=== PATIENT | male | born 1965 | race Caucasian/White ===

== ENCOUNTER → 2021-07-31 00:16 | Outpatient (CLI) | payer OTHER, SELFPAY ==
[2021-07-31 13:24] LABS: SARS-CoV-2 RNA PCR Negative
== END ==
PROVIDERS: PCP Internal Medicine; Visit Provider Surgery
DX: Z01.812 Encounter for preprocedural laboratory examination (principal); Z20.822 Contact with and (suspected) exposure to COVID-19
CPT/HCPCS: C9803; U0003; U0005

== ENCOUNTER 2021-08-04 00:26 | Day surgery (SDC) | payer OTHER, SELFPAY ==
[2021-07-28 10:12] VITALS: BMI 26.4
--- NOTE | 2021-07-28 10:24 | PC.NURSE ---
Report to the Outpatient Waiting Room, entrance under the green pavilion located off [facility], at time 0630 on date 08/04/21. OR Time: 0830. - You will be asked a series of questions to screen for COVID 19 for your protection. - A mask is required within the hospital. - No visitors are allowed at this time. Preoperative COVID Testing Requirements: COVID TEST 2/ AT 0930 No COVID Test needed if: (proof is required; if not received patient will have Rapid Test prior to entry) - Patient has received COVID Vaccine at least 14 days prior to procedure date or - Patient has positive COVID test result within last 90 days of surgery date. COVID Test needed if above criteria is not met If not COVID vaccinated a COVID test must be conducted within 72 hours of surgery and patient is asked to isolate self from time of testing until procedure. You will go to the [facility] for your COVID testing. The [facility] is located at the corner of [address] [facility]. You will only be called if COVID results are positive and your surgeon may reschedule your elective surgery date. Patients may have clear liquids (water, carbonated beverages, clear teas, apple juice) until 3 hours prior to surgery with a maximum of 20 ounces. - No food from midnight until time of surgery Take the following medications with a SIP of water the morning of surgery: NONE Medications to discontinue per physician: N/A Date to take last dose: N/A Please no make-up, nail sao tomean, hairspray, perfume, deodorant, or body powder the day of surgery. No jewelry (including any body piercings) or valuables the day of surgery, leave them at home. Please take a shower or bath the night before, or the morning of, surgery with an antibacterial soap. Wear comfortable, loose fitting clothing. HIBICLENS SHOWER - Jewelry must be removed prior to entering the operating room. Rings and piercings that are not removed may be cut off. - The hospital will not accept responsibility for valuables. - Please leave all valuables, including medications, at home the day of surgery. If you are going home after surgery, a licensed car pick up driver must drive you home. - NO public transportation without another adult. - We recommend that an adult stay with you for 24 hours following discharge. - We also recommend that you do not drive, make important decision, drink alcoholic beverages, or take any drugs that were not prescribed by your health care provider for at least 24 hours after your discharge time. Follow any additional instructions given to you from your surgeon. Telephone instructions given to CAROL PATEL and asked if any additional questions and then verbalized understanding. Patient advised to call surgeon office or pre surgery nurse liaison [phone] if any additional questions.
[2021-08-04 06:00] VITALS: BP 143/86; PULSE 68; RESP 16; TEMP 36.1; O2SAT 99
[2021-08-04] MEDS: ACETAMINOPHEN 500 MG TABLET 1000 MG PO (06:08)
[2021-08-04] MEDS: LACTATED RINGERS 1,000 ML 30 ML IV CONT ×2 (06:10→10:09)
[2021-08-04] MEDS: KETOROLAC 15 MG/ML VIAL (*BKC) IV PUSH (06:15)
--- NOTE | 2021-08-04 07:02 | PM.SD2 ---
Same Day Admit/Disch: HPI History of Present Illness Chief complaint: right inguinal hernia Narrative: Mir Chan is a 56 year old maleWith a right groin bulge for at least 2 years. This bulge has increased in size and is occasionally painful. He had bilateral inguinal hernia repairs when he was 5 years old. He has a history of a cardiac ablation for rapid heartbeat in 2019. He is a smoker and has had previous laparoscopic cholecystectomy. He is taken to surgery now for repair of right inguinal hernia. [facility] Past Medical History Medical History FH: cholecystectomy (~2017) Overweight (BMI 25.0-29.9) Surgical History Surgical History History of cardiac radiofrequency ablation (~2019) Hx of cholecystectomy Social History Social History Social History: Caffeine- tea/soda daily Smoking packs per day: 1 Smoking cigarettes per day: 20.0 Years smoked: 40 Smoking pack-years: 40.00 Smoking status: Current every day smoker Tobacco type: cigarettes Alcohol intake: current Alcohol use details: LOTS A COUPLE TIMES A WEEK - BEER AND FIREBALL Substance use: never Substance use type: does not use Living arrangements: with family Spiritual care concerns: No Same Day Admit/Disch: Med Pre-admit Medications Home Medications Medication Instructions Recorded Confirmed Type hydrocodone-acetaminophen 1 - 2 tablet PO Q6H PRN #10 tablet 08/04/21 Rx ketorolac 10 mg PO Q6H 4 Days #16 tablet 08/04/21 Rx Exam Const: General: comfortable, no acute distress, alert and awake HENMT: Head: normocephalic and atraumatic Mouth: Yes Normal oral and palatal mucosa present Eyes: Conjunctivae: conjunctivae normal Pupils: Equal, round and reactive pupils present EOM: EOMs intact bilaterally Neck: Neck: normal visual inspection, no lymphadenopathy and nontender Resp: Effort & Inspection: normal respiratory effort Auscultation: clear to auscultation bilaterally Cardio: Rate: regular rate Rhythm: regular rhythm Heart sounds: no gallops, no murmurs and no rubs GI: Inspection: non-distended and visible herniation ( Tiny nontender umbilical hernia) GI Palp: Yes Soft to palpation, No Tenderness to palpation present (GI), No Hepatomegaly present and No Splenomegaly present : Male General Exam: Yes hernia ( reducible right inguinal hernia, no left inguinal hernia) Penis: Yes normal penis Scrotum: scrotum normal Testes: Testes normal Skin: Lesions: no lesions Rashes: no rashes Neuro: General: no focal motor deficits and CN's II-XI intact bilaterally Cranial nerves: Yes Equal, round and reactive pupils present, Yes Bilaterally intact EOM present, Yes facial symmetry and Yes Midline tongue present Speech: normal speech Motor exam (neuro): 5/5 motor strength present throughout and Motor abnormalities not present Extrem: General: no clubbing, cyanosis or edema and edema Psych: Affect: normal affect Thought process: Normal thought process present Insight: Good insight present (Psych) DS: Summary Time Spent with Patient Time attestation: Total time spent providing and/or coordinating discharge services: DS: Admitting Diagnosis Discharge Date 08/04/2021 Admitting Diagnosis right inguinal hernia -plan to repair as an outpatient most likely with mesh. The procedure the risks the benefits have been discussed. All questions were answered. He understands and agrees to go ahead. Smoker history of coronary ablation for rapid tachyarrhythmia DS: Discharge Diagnosis Discharge Diagnosis (1) Reducible right inguinal hernia: Code(s): K40.90 - Unilateral inguinal hernia, without obstruction or gangrene, not specified as recurrent Status: Chronic (2) Tobacco abuse: Code(s): Z72.0 - Tobacco use Status: Chronic
--- NOTE | 2021-08-04 07:06 | WPDHPUPDATE1 ---
History and Physical Update Update Date/Time: 08/04/21 07:06 History and Physical has been reviewed, including an updated exam of the patient. There are NO changes in the patient's condition. Risks, benefits, and alternatives have been discussed and questions answered. Patient agrees to proceed with procedure.
--- NOTE | 2021-08-04 07:14 | P.PNAN_ITS ---
Anes - Initial Pre Proc Eval Procedure: Operation Date: 08/04/21 08:30 Proposed Procedures p Open Right Inguinal Hernia Repair - Imtiaz Mesa MD Date/Time: 08/04/21 07:14 Surgeon: Imtiaz Mesa MD Pre Op Diagnosis: right inguinal hernia Patient Data Age: 56 Gender: M Height: 1.85 m Weight: 83 kg Last Vital Signs Temp 36.1 C L 08/04/21 06:00 Pulse 68 08/04/21 06:00 Resp 16 08/04/21 06:00 BP 143/86 H 08/04/21 06:00 Pulse Ox 99 08/04/21 06:00 Allergies Allergy/AdvReac Type Severity Reaction Status Date / Time No Known Allergies Allergy Verified 08/04/21 06:36 Home Medications Medication Instructions Recorded Confirmed Type No Home Medications 05/31/21 08/04/21 History Patient hx anesthesia problems: none Family hx anesthesia problems: none Results Review: All pre-operative results and documents have been reviewed as part of the pre-operative evaluation. [facility] Past Medical History Medical History FH: cholecystectomy (~2018) Overweight (BMI 25.0-29.9) Surgical History Surgical History History of cardiac radiofrequency ablation (~2019) Hx of cholecystectomy Social History Social History Social History: Caffeine- tea/soda daily Smoking packs per day: 1 Smoking cigarettes per day: 20.0 Years smoked: 40 Smoking pack-years: 40.00 Smoking status: Current every day smoker Tobacco type: cigarettes Alcohol intake: current Alcohol use details: LOTS A COUPLE TIMES A WEEK - BEER AND FIREBALL Substance use: never Substance use type: does not use Living arrangements: with family Spiritual care concerns: No Anes - Eval Final PreProcedure Day of Procedure 08/04/21 07:14 Patient weight: normal Heart: regular rate and rhythm Lungs: clear to auscultation and normal air movement Airway: Mallampati scale class II Neurological: alert and oriented Last oral intake: >/= 8 hours ASA classification: III Emergent: no Anesthetic plan: proceed Anesthesia type and monitoring: general GIVS and standard monitoring Results Review: All pre-operative results and documents have been reviewed as part of the pre-operative evaluation. Informed Consent: The patient's anesthetic plan and its attendant risks and benefits were discussed with the patient/family/POA. Questions were solicited and answers provided to the satisfaction of the patient/family/POA.
[2021-08-04] MEDS: ceFAZolin 2 GM/D5W 50 ML 2 GM/50 ML BAG IVPB (08:41)
[2021-08-04] MEDS: BUPIVACAINE/EPINEPHRINE 0.5% 30 ML VIAL INFILTRATE ×2 (09:06→09:54)
[2021-08-04 10:09] VITALS: BP 125/83; PULSE 81; RESP 16; TEMP 36.2; O2SAT 94
--- NOTE | 2021-08-04 10:14 | W.PM.PROC2 ---
Procedure Note - Detailed Date of Procedure 08/04/21 Pre-op Diagnosis right inguinal hernia Post-op Diagnosis same Procedure Performed Repair right inguinal hernia with extra-large PerFix Light plug and patch Surgeon Imtiaz Mesa MD [employer] Aleena Infante [employer] Anesthesia MAC and local (0.5% Marcaine with epinephrine, Xaracoll) Indications Patient is a 56-year-old man who had bilateral inguinal hernia repairs at the age of 5. He has developed a bulge and some discomfort in the right groin consistent with an adult right inguinal hernia. He is taken to surgery now for repair Findings He had a large direct right inguinal hernia. Description of Procedure Patient was taken to surgery and IV sedation was administered. Prep and drape of the right groin and genitalia was carried out. The proposed incision was marked on the skin largely over the previous right inguinal scar. Local was infiltrated in the area of the previous incision as well as in the deeper subcutaneous tissues. Incision was made dissection was carried down through the subcutaneous. Crossing veins were cauterized and divided. Dissection was carried through Shelton's fascia and down to the external oblique aponeurosis. The aponeurosis and the external ring were exposed. Additional local was infiltrated deep to the aponeurosis in the area of the spermatic cord and inguinal canal contents. I then opened the aponeurosis laterally and extended this incision medially through the external ring. Care was taken to avoid injury to the ilioinguinal nerve which was left it attached to the spermatic cord. I freed the leaves of the external oblique aponeurosis from the inguinal canal contents. I then mobilized the cord medially on a Bea drain. I gently started mobilizing the cord back towards the internal ring. A large direct hernia was noted. It was carefully dissected free from the spermatic cord. The direct hernia occupied most of the inguinal canal. Only about a cm of the most medial aspect of the canal was not involved with the hernia. I mobilized the cord back to the internal ring. I dissected the hernia sac free from the cord entirely and also dissected it circumferentially around its base. I then scored through the transversalis fascia circumferentially just above the neck of the hernia. I then dunked the hernia into the retroperitoneum. The extra-large Light PerFix plug was then placed in the defect. I sutured the edges to the transversalis fascia with interrupted 3-0 Vicryl suture. I then partially closed the defect with 3-0 Vicryl to minimize the risk of reherniation. The patch was then cut to the appropriate size. A keyhole was cut in the patch and it was laid over the inguinal canal floor with the lateral leaves passing beyond the cord. It covered the repair and inguinal canal floor nicely. I then placed pieces of Xaracoll over the mesh. The cord was laid over the Xaracoll and the external oblique aponeurosis was closed with interrupted 3-0 Vicryl suture. More Xaracoll was then placed over the external oblique aponeurosis. Shelton's fascia was closed with interrupted 3-0 Vicryl suture. The rest of the Xaracoll was placed in the subcutaneous. The skin was loosely approximated with subcuticular interrupted 4-0 Vicryl sutures. Finally the skin was closed with running 4-0 Monocryl skin suture. The wound was dressed with Exofin surgical adhesive. Patient was awakened and taken to recovery in good condition. Sponge and needle counts were correct x2. Implants Extra large PerFix Light plug and patch, Xaracoll Estimated Blood Loss -5 Drains No Packing No Pathology none sent Complications No immediate complications Condition stable Disposition same day
[2021-08-04 10:40] VITALS: BP 134/75; PULSE 66
[2021-08-04 11:10] VITALS: BP 149/82; PULSE 71
== END 2021-08-04 11:37 | disposition home or self-care (01) ==
PROVIDERS: PCP Internal Medicine; Visit Provider Surgery
PROC: (CPT 49505; principal; 2021-08-04 08:30)
DX: K40.90 Unilateral inguinal hernia, without obstruction or gangrene, not specified as recurrent (principal); F17.210 Nicotine dependence, cigarettes, uncomplicated
CPT/HCPCS: 49505; A9270; C1781; J0690; J1100; J1170; J1885; J2250; J2405; J2704; J3010; J7120

== ENCOUNTER 2021-08-15 08:42 | Observation (INO) | payer OTHER, SELFPAY ==
--- NOTE | 2021-08-14 20:01 | ADMGEN ---
direct admit from [facility] s/p inguinal hernia repair complications. This patient, Mir Chan, was admitted to 3 Medical Room 346-01. Patient/family oriented to hospital policies and general routines including ID bracelet, bed and alarms, visiting hours, pain management, procedures, bathroom and other care routines, personal items, smoking policy, room service/diet, and visiting hours. Information on how to activate the Rapid Response Team has been discussed. Patient/Family are encouraged to report perceived risks to care and to ask questions if they do not understand what they are told or what they should do.
[2021-08-14] MEDS: MORPHINE SULFATE (*CRX) 4 MG/ML INJ IV PUSH ×2 (21:20→23:30)
[2021-08-14] MEDS: LACTATED RINGERS 1,000 ML 100 ML IV CONT (21:35)
[2021-08-14 21:58] VITALS: BP 168/90; PULSE 93; RESP 18; TEMP 36.7; O2SAT 99
[2021-08-14 21:59] VITALS: BP 168/90; PULSE 93; RESP 18; TEMP 36.7; O2SAT 99
[2021-08-14 22:01] VITALS: BP 168/90; PULSE 93; RESP 18; TEMP 36.7; O2SAT 99
[2021-08-14 23:00] VITALS: BMI 25.3
[2021-08-15] VITALS (12 sets, daily range): BP systolic 106–148; BP diastolic 56–95; PULSE 70–87; RESP 10–20; TEMP 35.4–36.7; O2SAT 90–98
--- NOTE | ~2021-08-15 | US_ITS ---
US scrotum doppler INDICATION: Right testicular pain after hernia repair TECHNIQUE: Testicular sonogram utilizing grayscale and color Doppler FINDINGS: The testes are heterogeneous. There are multiple right testicular simple and complicated cy sts largest measuring 9 mm. No left testicular masses.. The right testes measures 3.8 x 2.2 x 3.7 lorelei timeters, and the left testis measures 4.5 x 2.6 x 3.8 cm. There is normal vascular flow to both test es. There is a right epididymal cyst measuring 1.6 x 1.5 x 1.1 cm. There are bilateral hydroceles, left greater than right. There is a left varicocele. Scrotal edema is noted bilaterally. IMPRESSION: 1. Multiple right testicular cysts measuring up to 9 mm. 2: Right epididymal cyst. 3: Left varicocele. 4: Bilateral hydroceles, left greater than right. Reviewed, dictated and finalized at location B. HT DATA TECHNICIAN
[2021-08-15] MEDS: MORPHINE SULFATE (*CRX) 4 MG/ML INJ IV PUSH ×5 (01:57→21:17)
[2021-08-15 06:04] LABS: Hemoglobin 13.9 g/dL (14.0-18.0); Mean Corpuscular HGB Conc 33.9 g/dl (32-36); Mean Corpuscular Hemoglobin 32.7 pg (26-34); Mean Corpuscular Volume 96.5 fl (80-100); Mean Platelet Volume 9.5 fl (7.4-10.4); Platelet Count Result 283 k/mm3 (150-375); Red Blood Count 4.25 M/mm3 (4.6-6.20); Red Cell Distribution Width 13.6 % (11.5-14.5); White Blood Count 8.3 K/mm3 (4.5-10.0)
[2021-08-15 06:19] LABS: Anion Gap 5 mmol/L (8-16); Blood Urea Nitrogen 15 mg/dL (9-20); Calcium 8.9 mg/dL (8.4-10.2); Carbon Dioxide 27 mmol/L (22-30); Chloride 104 mmol/L (98-107); Estimated CRCL calculation 111 ml/min; Estimated Glomerular Filt Rate > 60; Glucose 96 mg/dL (65-110); Sodium 136 mmol/L (137-145)
--- NOTE | 2021-08-15 08:38 | P.PNAN_ITS ---
Anes - Eval Pre Procedure Date/Time: 08/15/21 08:38 Pre Op Diagnosis: Complications hernia repair Patient Data Age: 56 Gender: M Height: 1.83 m Weight: 84.8 kg Last Vital Signs Temp 36.7 C 08/15/21 06:39 Pulse 79 08/15/21 06:39 Resp 18 08/15/21 06:39 BP 122/56 L 08/15/21 06:39 Pulse Ox 95 08/15/21 06:39 Allergies Allergy/AdvReac Type Severity Reaction Status Date / Time No Known Allergies Allergy Verified 08/14/21 23:55 Home Medications Medication Instructions Recorded Confirmed Type aspirin [Adult Aspirin] 81 mg PO DAILY 08/15/21 08/15/21 History ibuprofen 800 mg PO Q6H PRN 08/15/21 08/15/21 History Laboratory Tests 08/15/21 08/15/21 05:44 05:44 WBC 8.3 K/mm3 K/mm3 (4.5-10.0) RBC 4.25 M/mm3 L M/mm3 (4.6-6.20) Hgb 13.9 g/dL L g/dL (14.0-18.0) Hct 41.0 % L % (42.0-52.0) MCV 96.5 fl fl (80-100) MCH 32.7 pg pg (26-34) MCHC 33.9 g/dl g/dl (32-36) RDW 13.6 % % (11.5-14.5) Plt Count 283 k/mm3 k/mm3 (150-375) MPV 9.5 fl fl (7.4-10.4) Sodium 136 mmol/L L mmol/L (137-145) Potassium 4.0 mmol/L mmol/L (3.4-5.0) Chloride 104 mmol/L mmol/L (98-107) Carbon Dioxide 27 mmol/L mmol/L (22-30) Anion Gap 5 mmol/L L mmol/L (8-16) BUN 15 mg/dL mg/dL (9-20) Creatinine 0.70 mg/dL mg/dL (0.7-1.3) Estim Creat Clear Calc 111 ml/min ml/min Estimated GFR > 60 (59 - ) Glucose 96 mg/dL mg/dL (65-110) Calcium 8.9 mg/dL mg/dL (8.4-10.2) Patient hx anesthesia problems: none Family hx anesthesia problems: none Results Review: All pre-operative results and documents have been reviewed as part of the pre-operative evaluation. [facility] Past Medical History Medical History FH: cholecystectomy (~2017) Overweight (BMI 25.0-29.9) Surgical History Surgical History History of cardiac radiofrequency ablation (~2019) Hx of cholecystectomy Family History Family History (Updated 08/15/21 @ 00:24 by Tricia Stringer RN) Other Unknown family medical history Social History Social History Social History: Caffeine- tea/soda daily Smoking packs per day: 2 Smoking cigarettes per day: 40.0 Years smoked: 40 Smoking pack-years: 80.00 Smoking status: Current every day smoker Tobacco type: cigarettes Alcohol intake: current Drinks per week: 24 Alcohol use details: LOTS A COUPLE TIMES A WEEK - BEER AND FIREBALL Substance use: current Substance use type: marijuana Spiritual care concerns: No Exam Day of Procedure 08/15/21 08:38
--- NOTE | 2021-08-15 08:40 | PM.IMHP ---
H&P: HPI History of Present Illness Date/Time: 08/15/21 08:40 Chief Complaint: Right groin swelling/pain Narrative: This is a 56-year-old man who presented to [facility] emergency department last night with right groin pain, swelling, and bleeding. He is status post open right inguinal hernia repair by Dr. Mesa 10 days ago. He was doing well for about the 1st 7 or 8 days, but then noted increasing swelling and bleeding at his incision that started yesterday morning. In the emergency department, a CT of his abdomen and pelvis was performed and this showed evidence of a right groin hematoma and possible right testicular torsion. He continues to have some bleeding from the incision and has had to change bandages multiple times a day due to this. He is mostly having pain at the upper scrotum and deep into the inguinal canal. He denies any pain from where the hernia repair was performed. He denies any change in his bowel habits. He does not recall anything that he did that could have caused the bleeding or swelling. He has been maintaining light activity. He was transferred from [facility] to [facility] for further treatment. Review of Systems Review of Systems: All systems reviewed & are unremarkable except as noted in HPI and below Constitutional: Constitutional: Denies chills and Denies fever(s) Cardiovascular: Cardiovascular: Denies chest pain and Denies dyspnea Respiratory: Respiratory: Denies dyspnea Gastrointestinal: Gastrointestinal: Reports as per HPI [facility] Past Medical History Medical History (Updated 08/15/21 @ 08:50 by Juan Kingsley DO) FH: cholecystectomy (~2018) Overweight (BMI 25.0-29.9) Surgical History Surgical History (Updated 08/15/21 @ 08:50 by Juan Kingsley DO) History of cardiac radiofrequency ablation (~2019) Hx of cholecystectomy Hx of right inguinal hernia repair open right inguinal hernia repair with mesh on 08/04/[address] Mesa Family History Family History Other Unknown family medical history Social History Social History Social History: Caffeine- tea/soda daily Smoking packs per day: 2 Smoking cigarettes per day: 40.0 Years smoked: 40 Smoking pack-years: 80.00 Smoking status: Current every day smoker Tobacco type: cigarettes Alcohol intake: current Drinks per week: 24 Alcohol use details: LOTS A COUPLE TIMES A WEEK - BEER AND FIREBALL Substance use: current Substance use type: marijuana Spiritual care concerns: No Meds Home Medications and Allergies Home Medications Medication Instructions Recorded Confirmed Type aspirin [Adult Aspirin] 81 mg PO DAILY 08/15/21 08/15/21 History ibuprofen 800 mg PO Q6H PRN 08/15/21 08/15/21 History Allergies Allergy/AdvReac Type Severity Reaction Status Date / Time No Known Allergies Allergy Verified 08/14/21 23:55 Vital Signs Vital Signs - 24 hr 08/14/21 21:58 08/14/21 21:59 08/14/21 22:01 Temperature 36.7 C 36.7 C 36.7 C Pulse Rate 93 93 93 Respiratory Rate 18 18 18 Blood Pressure 168/90 H 168/90 H 168/90 H Pulse Oximetry 99 99 99 08/15/21 06:39 Temperature 36.7 C Pulse Rate 79 Respiratory Rate 18 Blood Pressure 122/56 L Pulse Oximetry 95 Exam Const: General: cooperative and no acute distress Nutritional Appearance: average body habitus Orientation/consciousness: patient oriented x3 HENMT: Head: normal to inspection Ears: hearing grossly normal bilaterally Mouth: Yes Normal oral and palatal mucosa present Eyes: General: appearance normal, both eyes and all related structures Sclera: sclerae normal EOM: EOMs intact bilaterally Neck: Neck: normal visual inspection and full ROM Resp: Effort & Inspection: normal respiratory effort and able to speak in complete sentences Cardio: Jugular venous distension: no
--- NOTE | 2021-08-15 08:52 | WPDHPUPDATE1 ---
History and Physical Update Update Date/Time: 08/15/21 08:52 History and Physical has been reviewed, including an updated exam of the patient. There are NO changes in the patient's condition. Risks, benefits, and alternatives have been discussed and questions answered. Patient agrees to proceed with procedure.
[2021-08-15] MEDS: NICOTINE (*PBKC) 21 MG PATCH 1 PATCH TRANSDERM (09:26)
[2021-08-15] MEDS: LACTATED RINGERS 1,000 ML 100 ML IV CONT ×2 (09:26→12:35)
[2021-08-15] MEDS: LACTATED RINGERS 1,000 ML 30 ML IV CONT (09:55)
[2021-08-15] MEDS: ceFAZolin 2 GM/D5W 50 ML 2 GM/50 ML BAG IVPB ×2 (09:58→18:24)
[2021-08-15] MEDS: BUPIVACAINE/EPINEPHRINE 0.5% 30 ML VIAL INFILTRATE (10:12)
--- NOTE | 2021-08-15 10:30 | SUR.OPER ---
60ML CLOT OLD BLOOD WOUND EVACUATION/ TOTAL EBL FOR SURGERY 10. PATIENT VOIDED IMMEDIATELY PRIOR TO COMING TO OR.
--- NOTE | 2021-08-15 10:40 | P.OP_ITS ---
Procedure Note - Detailed Date of Procedure 08/15/21 Pre-op Diagnosis Right inguinal hematoma, status post right inguinal hernia repair Post-op Diagnosis same Procedure Performed Incision and drainage right inguinal hematoma Surgeon Juan Kingsley, DO Anesthesia MAC and local (0.5% bupivacaine with epinephrine) Indications This is a 56-year-old man who is status post open right inguinal hernia repair with mesh 08/04/[address] Mesa. He was doing well initially postoperatively and only had some mild swelling and bruising in the groin and scrotum. On postop day 8 he began noticing increasing swelling and pain in the upper scrotum and inguinal region. Yesterday morning he then also noted some bleeding from his incision. He went to the emergency department at [facility] yesterday and CT showed evidence of a right groin hematoma. He was then transferred to [facility] for further treatment and decision was made to proceed with incision and drainage of the right groin hematoma. Findings Incision and drainage of the inguinal hematoma was performed. The previous incision from the open inguinal hernia was opened and about 60-80 mL of old clotted blood was evacuated. There did also appear to be some clot deep to the external oblique aponeuroses, but this appeared fairly minimal. The clot extended down into the upper scrotum. After irrigating the inguinal canal, I then placed a 19 round Marc drain. No specimens were obtained for pathology. Description of Procedure Procedure as well as risks benefits, and alternatives were discussed with the patient. Written consent was obtained placed in chart prior to procedure. Patient was brought back to surgical suite. He was placed supine on operating table. Time-out was done to confirm patient and procedure. IV sedation was then administered by the anesthesia department. His right inguinal scrotal region was prepped and draped in sterile fashion using Betadine prep. 0.5% bupivacaine with epinephrine was infiltrated locally around the previous incision and subcutaneous space. The incision was then opened using a 15 blade scalpel. The hematoma was evacuated. There were several Vicryl stitches that were also excised from Shelton's fascia to allow further evacuation of hematoma. The wound bed was then irrigated with sterile saline. No active bleeding was identified no other abnormalities seen. There was still significant induration into the scrotum, therefore it was difficult to palpate the testicle. A 19 Marc drain was placed in the subcutaneous space and extended down into the upper scrotum. The drain was secured in place using a 3-0 nylon drain stitch. Shelton's fascia was then closed over the drain using 3-0 Vicryl simple interrupted sutures. The deep dermis was reapproximated using 3-0 Vicryl inverted interrupted sutures. The skin was then closed using 4-0 Monocryl running subcuticular suture. Exofin glue was then applied on top. Drain sponge was placed around the drain followed by tape. Patient was then awakened from anesthesia and transferred recovery. Estimated Blood Loss 10 Urine Output 500 Drains Yes (19 round Marc) Complications No immediate complications Condition stable Disposition floor
[2021-08-15] MEDS: HYDROcodone/acetaminophen (*CRX) 10-325 MG TABLET 1 TAB PO ×2 (12:34→18:23)
[2021-08-16] MEDS: HYDROcodone/acetaminophen (*CRX) 10-325 MG TABLET 1 TAB PO ×2 (01:25→11:21)
[2021-08-16] MEDS: ceFAZolin 2 GM/D5W 50 ML 2 GM/50 ML BAG IVPB ×2 (01:28→09:04)
[2021-08-16 01:59] VITALS: BP 146/96; PULSE 72; RESP 18; TEMP 36.1; O2SAT 99
[2021-08-16] MEDS: MORPHINE SULFATE (*CRX) 4 MG/ML INJ IV PUSH (06:20)
[2021-08-16 06:49] VITALS: BP 131/82; PULSE 84; RESP 18; TEMP 36.7; O2SAT 94
[2021-08-16] MEDS: NICOTINE (*PBKC) 21 MG PATCH 1 PATCH TRANSDERM (09:04)
--- NOTE | 2021-08-16 13:00 | PM.DS ---
DS: Admitting Diagnosis Discharge Date 08/16/21 Admitting Diagnosis S/p right inguinal hernia repair Post-operative right groin hematoma Tobacco abuse DS: Discharge Diagnosis Discharge Diagnosis (1) Groin hematoma: Qualifiers: Encounter type: initial encounter Qualified Code(s): S30.1XXA - Contusion of abdominal wall, initial encounter Code(s): S30.1XXA - Contusion of abdominal wall, initial encounter Status: Acute Assessment and Plan: 08/15/21 - Incision and drainage right inguinal hematoma - by Dr. Kingsley (2) Hx of right inguinal hernia repair: Code(s): Z98.890 - Other specified postprocedural states; Z87.19 - Personal history of other diseases of the digestive system Status: Acute Assessment and Plan: 08/04/21 - Repair right inguinal hernia with extra-large PerFix Light plug and patch - by Dr. Mesa (3) Tobacco abuse: Code(s): Z72.0 - Tobacco use Status: Chronic DS: Summary Hospital Course Reason for hospitalization: This is a 56-year-old man who presented to [facility] to the ED with right groin pain, swelling, and bleeding. He was status post an open right inguinal hernia repair by Dr. Mesa on 08/04/2021. In the ED, a CT scan of the abdomen and pelvis was performed and showed evidence of a right groin hematoma and possible right testicular torsion. He was directly transferred for admission to [facility] on 08/15/2021 for the right groin hematoma. Hospital Course: The patient was taken to the OR on 08/15/2021 for incision and drainage of right inguinal hematoma. A ZAIN drain was left in place following surgery and monitored. The patient was seen today. He is tolerating his diet and tolerating activity well. He reports feeling much better today with improvement of right groin and right lower abdominal pain. He reports swelling has significantly improved following surgery. His only complaint today is still some right testicular pain and swelling. An ultrasound of the scrotum was ordered today and showed normal vascular flow to both testes. There was multiple right testicular cyst, right epididymal cyst, bilateral hydroceles, and left varicocele. Patient is voiding without any difficulty. The patient has been evaluated by Dr. Mesa is well today and is stable for discharge. We will leave the ZAIN drain in place on discharge and have him follow-up with Dr. Mesa in 1 week. Time spent discussing smoking cessation with patient: 3 to 10 minutes Status at Discharge Functional status at discharge: independent ambulation Overall status at discharge: patient is progressing back to baseline Time Spent with Patient Time attestation: Total time spent providing and/or coordinating discharge services: Time spent: Less than 30 minutes Exam Const: General: no acute distress Orientation/consciousness: patient oriented x3 Resp: Effort & Inspection: normal respiratory effort Auscultation: clear to auscultation bilaterally Cardio: Rate: regular rate Rhythm: regular rhythm GI: Inspection: normal to inspection, non-distended and other (ZAIN drain with dark sanguineous drainage) GI Palp: Yes Soft to palpation, No Tenderness to palpation present (GI), No Guarding due to palpation present (GI) and No Rebound tenderness present Auscultation: normal bowel sounds : Penis: Yes ecchymosis (very mild ecchymosis noted) and No edematous Scrotum: scrotal swelling (mild, R>L) Testes: testicular tenderness on the right; not on the left Other: ecchymosis and swelling over right inguinal canal and extending into upper scrotum. right inguinal incision dry and glue intact. Neuro: General: moves all extremities and no focal motor deficits Extrem: General: normal to inspection and no clubbing, cyanosis or edema Psych: Mental Status: mental status grossly normal Thought process: Normal thought process present DS: Data Imaging Radiologist's impression: ITS Impress
== END 2021-08-16 13:30 | disposition home or self-care (01) ==
PROVIDERS: Admitting Provider Surgery; PCP Internal Medicine; Visit Provider Surgery
PROC: (CPT 10140; principal; 2021-08-15 10:00)
DX: K91.870 Postprocedural hematoma of a digestive system organ or structure following a digestive system procedure (principal); N50.811 Right testicular pain; N50.3 Cyst of epididymis; I86.1 Scrotal varices; N43.3 Hydrocele, unspecified; F17.210 Nicotine dependence, cigarettes, uncomplicated
CPT/HCPCS: 10140; 36415; 76870; 80048; 85027; 93976; A9270; G0378; G0379; J0690; J2270; J2704; J3010; J7120